=== PATIENT | male | born 1980 | race Caucasian/White ===

== ENCOUNTER 2024-10-18 07:20 | Outpatient (OUT) | payer OTHER, SELFPAY ==
--- NOTE | 2024-10-18 | ECG_ITS ---
[facility] Test Date: 2024-10-18 Pat Name: ZARINA FELTON Department: Room: - Gender: Male Change Of Address Clerk: : 1980 Requested By: DARIN VALENZUELA Order Number: [id number] Reading MD: DARIN VALENZUELA Measurements Intervals [place] Rate: 82 P: 56 W[place]: 128 QRS: 256 QRSD: 92 T: 9 QT: 338 QTc: 396 Interpretive Statements SINUS RHYTHM PATTERN CONSISTENT WITH PULMONARY DISEASE INCOMPLETE RIGHT BUNDLE BRANCH BLOCK [90+ ms QRS DURATION, TERMINAL R IN V1/V2, 40+ ms S IN I/aVL/V4/V5/V6] RIGHT VENTRICULAR HYPERTROPHY [SOME/ALL OF: PROMINENT R IN V1, LATE TRANSITION, RAD, MARLO, SSS] No previous ECG available for comparison Electronically Signed On 10-18-2024 19:45:47 EST by DARIN VALENZUELA
[2024-10-18 07:59] LABS: Basophils Percent Auto 0.4 % (0.2-2.0); Eosinophils Absolute Auto 0.2 10^3/uL (0.0-0.7); Eosinophils Percent Auto 2.6 % (0.9-7.0); Hematocrit 53.9 % (42.0-54.0); Hemoglobin 17.5 g/dL (14.0-18.0); Immature Granulocytes Abs Auto 0.02 10^3/uL (0.00-0.03); Immature Granulocytes Pct Auto 0.3 % (0.0-0.5); Lymphocytes Absolute Auto 1.8 10^3/uL (1.2-3.8); Lymphocytes Percent Auto 23.6 % (20.5-60.0); Mean Corpuscular HGB Conc 32.5 g/dL (29.9-35.2); Mean Corpuscular Hemoglobin 26.3 pg (25.9-34.0); Mean Corpuscular Volume 80.9 fL (80.0-94.0); Mean Platelet Volume 9.1 fL (9.5-13.5); Monocytes Absolute Auto 0.7 10^3/uL (0.3-0.8); Neutrophils Percent Auto 64.1 % (43.0-75.0); Platelet Count 259 10^3/uL (150-450); Red Blood Count 6.66 10^6/uL (4.70-6.10); Red Cell Distribution Width 14.1 % (11.0-15.0); White Blood Count 7.8 10^3/uL (4.0-11.0)
[2024-10-18 08:16] LABS: Alanine Aminotransferase 69 U/L (16-63); Alkaline Phosphatase 86 U/L (46-116); Anion Gap 13.3; Aspartate Amino Transferase 31 U/L (15-37); BUN Creatinine Ratio 11.1; Bilirubin Total 0.9 mg/dL (0.2-1.0); Calcium 9.3 mg/dL (8.5-10.1); Chloride 101 mmol/L (98-107); Cholesterol 204 mg/dL (<=200); Estimated GFR (African America >60 (>=60 mL/min/1.73m^2); Estimated GFR (Non-African Ame 54 (>=60 mL/min/1.73m^2); Glucose 93 mg/dL (74-106); HDL Cholesterol 45 mg/dL (40-60); Potassium 4.3 mmol/L (3.5-5.1); Sodium 139 mmol/L (136-145); Triglycerides 140 mg/dL (<=150)
[2024-10-18 08:17] LABS: Chol HDL Ratio 4.5; Thyroid Stimulating Hormone 3.009 uIU/mL (0.358-3.740)
[2024-10-18 08:29] LABS: Estimated Average Glucose 114 mg/dL; Glycohemoglobin A1C 5.6 % (4.5-6.2)
== END 2024-10-18 07:21 | disposition home or self-care (01) ==
PROVIDERS: PCP Internal Medicine; Visit Provider Internal Medicine
DX: Z00.00 Encounter for general adult medical examination without abnormal findings (principal); R00.0 Tachycardia, unspecified
CPT/HCPCS: 36415; 80053; 80061; 83036; 84443; 85025; 93005

== ENCOUNTER 2024-11-01 14:45 | Outpatient (OUT) | payer OTHER, SELFPAY ==
--- NOTE | 2024-11-01 14:47 | CA_ITS ---
Patient Name: ZARINA FELTON MR#: [id number] : 1980 Exam Date: 11/01/2024 Ordering Doctor: DR DARIN VALENZUELA D.O. ECHOCARDIOGRAM REPORT PROCEDURE: CA ECHO DOPPLER COMPLETE INDICATIONS: Hypertension, tachycardia, heart murmur COMPARISON: None. DESCRIPTION: COMPLETE ECHOCARDIOGRAM Real-time transthoracic echocardiography with 2D, M-mode, spectral and color flow Doppler performed. QUALITY: Technical quality was good. LEFT VENTRICLE: Normal chamber size. Moderate concentric hypertrophy. Global left ventricular systolic function is normal. LV EF: Estimated left ventricular ejection fraction is 65-70%. DIASTOLIC: Normal diastolic function. ATRIAL SEPTUM: LEFT ATRIUM: Normal chamber size. RIGHT ATRIUM: Normal chamber size. RIGHT VENTRICLE: Normal chamber size. Normal right ventricular systolic function. TRICUSPID VALVE: Normal mobility and thickness. No stenosis with trivial regurgitation. No evidence of pulmonary hypertension. RVSP 23 mmHg MITRAL VALVE: Normal mobility and thickness. No evidence of mitral valve stenosis. There is no mitral annular calcification. Trivial mitral regurgitation. AORTIC VALVE: Normal trileaflet appearance. No visible sclerosis. Normal leaflet mobility. No evidence of aortic valve stenosis. Trivial aortic regurgitation. AORTIC ROOT: Normal diameter and appearance, measuring 3.4 cm. The ascending aorta is normal in size measuring 2.9 cm. PULMONIC VALVE: Normal thickness and mobility. No stenosis. Trivial regurgitation. PERICARDIUM: No evidence of pericardial effusion. IVC: Collapses with inspirations. Normal size. PLEURA: CONCLUSION: 1. Moderate concentric left ventricular hypertrophy with normal systolic function. LVEF is 65 to 70%. 2. Normal right ventricular size and systolic function. 3. Normal diastolic function. 4. No significant valvular dysfunction. 5. Normal right-sided pressures. Adult Echocardiography Procedure Report Left Ventricle LVEDD (3.7 - 5.6 cm): 4.52 cm LVESD (2.2 - 4.0 cm): 2.65 cm LVIVS thickness (0.6 - 1.2 cm): 1.57 cm LVPW thickness (0.5 - 1.0 cm): 1.21 cm e': 0.15 m/s E - e': 4.63 LVOT Max Gradient: 4.24 mm[Hg] LVOT Area (cm2): 1.03 m/s Peak Velocity (LVOT): 1.03 m/s Mean Velocity (LVOT): 0.67 m/s LVOT Diameter 2.33 cm Left Ventricular Ejection Fraction: 65-70 % Left Atrium LA Volume Index (2D A2C): 24.05 ml/m2 Left Atrium Systolic Dimension: 3.93 cm Mitral Valve MV E to A Ratio: 0.80 Mitral Valve A-Wave Peak Velocity: 0.87 m/s Mitral Valve E-Wave Peak Velocity: 0.70 m/s Right Ventricle RV Internal Diastolic Dimension: 3.42 cm Aorta AO Root Diam: 3.39 cm Ascending Ao Diam: 2.93 cm Aortic Valve AoV Area (Peak Jarrod): 3.05 cm2, 2.98 cm2 AoV Area (VTI): 3.17 cm2, 3.17 cm2 Peak Velocity(Antegrade Flow): 1.47 m/s, 1.40 m/s Peak Gradient(Antegrade Flow): 8.69 mm[Hg], 7.85 mm[Hg] Mean Velocity(Antegrade Flow): 0.99 m/s, 0.98 m/s Mean Gradient(Antegrade Flow): 4.48 mm[Hg], 4.35 mm[Hg] Velocity Time Integral: 22.69 cm, 22.64 cm Tricuspid Valve Peak Velocity (Regurgitant Flow): 2.21 m/s, 2.14 m/s Pulmonic Valve Mean Gradient: 1.89 mm[Hg], 2.59 mm[Hg] Mean Velocity: 0.65 m/s, 0.75 m/s Peak Velocity: 1.04 m/s Peak Gradient: 3.52 mm[Hg], 5.26 mm[Hg] Right Atrium Right Atrium Systolic Pressure: 45.48 ml, 45.48 ml Dictated by: Landon Larios M.D. on 11/01/2024 at 18:46 Approved by: Landon Larios M.D. on 11/01/2024 at 18:50
--- OUTSIDE RECORDS SUMMARY | 2024-11-01 14:49 | XMS_ITS | CCD ---
Author Organization [facility] Care Team Providers Care Grating Machine Operator Name Role Phone Demetria Vogel Unavailable Neal Valenzuela Unavailable DR NEAL VALENZUELA Attending Unavailable BIANCA, DR WEBSTER Consulting Unavailable BIANCA, DR WEBSTER Primary Care Unavailable BIANCA, DR WEBSTER Admitting Unavailable REBECCA, DR THEODORE Momin Consulting Unavailable EMILY Kirk Attending Provider Claudette Kirk Unavailable Claudette Kirk Attending Unavailable Claudette Kirk Admitting Unavailable Allergies Allergy Classification Reported Allergen(s) Allergy Type Date of Onset Reaction(s) Facility (9 sources) Penicillin G Drug Allergy 4 Unknown, Unknown Reaction [facility] (3 sources) Penicillins Drug allergy (disorder) 4 Unknown Reaction [facility] (4 sources) Substance with penicillin structure and antibacterial mechanism of action (substance) Drug allergy Unknown [employer] Other Medications Current Medications Medication Drug Class(es) Dates Sig (Normalized) Sig (Original) esomeprazole 40 mg oral tablet (15 sources) Proton Pump Inhibitor Start: 01-10-2024 take 40 mg by mouth once daily Esomeprazole Magnesium Active 40 MG PO Daily January 10, 2024 12:00am Esomeprazole Mag nesium 40 mg TAKE 1 CAPSULE DAILY ON AN EMPTY STOMACH, FOLLOWED IN 30 MINUTES BY BREAKFAST Orally Once a day for 90 days Active NexIUM Not-Takin g Esomeprazole Magnesium 40 mg capsule,delayed release(DR/EC) (2 sources) Start: 07-08-2024 Esomeprazole M agnesium 40 mg capsule,delayed release(DR/EC) Active 0 .ROUTE .COMPLEX 90 July 08, 2024 5:56am TAKE 1 CAPSULE DAILY ON AN EMPTY STOMACH, FOLLOWED IN 30 MINUTES BY BREAKFAST Start: 01-10-2024 End: 07-08-2024 take 1 capsule by mouth once daily Esomeprazole Magnesium 40 mg capsule,delayed release(DR/EC) Discontinued 40 MG PO Daily January 09, 2024 11:00pm July 08, 2024 5:56am 0.5 ml testosterone enanthate 100 mg/ml auto-injector (1 source) Androgen Start: 10-12-2024 Testosterone E nanthate 50 mg/0.5 mL auto-injector Active 50 MG SUBCUT every week October 12, 2024 12:00am triamcinolone acetonide 0.005 mg/mg topical ointment (1 source) Corticosteroid Start: 08-06-2023 Triamcinolone Acetonide 0.5 % 1 application Externally Twice a day for 30 days Aug, Active Completed/Discontinued Medications Medication Drug Class(es) Dates Sig (Normalized) Sig (Original) cyclobenzaprine hydrochloride 10 mg oral tablet (9 sources) Muscle Relaxant Start: 01-10-2024 End: 10-12-2024 take 1 tablet by mouth once daily Cyclobenzaprine 10 mg tablet Discontinued 10 MG PO daily 7 January 09, 2024 11:00pm October 12, 2024 3:01pm Start: 11-04-2022 take 1 tablet by kaur th every twenty-four hours Cyclobenzaprine HCl 5 MG 1 tablet at bedtime as needed Orally Once a day for 30 day(s) Oct, Not-Taking Ketorolac (14 sources) Nonsteroidal Anti-inflammatory Drug, Cyclooxygenase Inhibitor Start: 05-11-2014 Toradol p er 15 mg May, 60 mg Start: 12-21-2013 Toradol per 15 mg Dec, 60 mg methylPREDNISolone (7 sources) Corticosteroid Start: 12-21-2013 Depo-Medrol 80 mg Dec, 80 mg sulfamethoxazole 800 mg / trimethoprim 160 mg oral tablet (7 sources) Dihydrofolate Reductase Inhibitor Antibacterial, Sulfonamide Antimicrobial Start: 11-04-2022 take 1 tablet by mouth every twelve hours Sulfamethoxazole -Trimethoprim 800-160 MG 1 tablet Orally Twice a day for 10 day(s) Oct, Not-Taking Problems Active Problems Problem Classification Problem Date Documented Da te Episodic/Chronic Alcohol-related disorders (7 sources) Nondependent alcohol abuse in remission; Translations: [Alcohol abuse, in remission] Chronic Cardiac dysrhythmias (2 sources) Tachycardia; Translations: [Tachycardia, unspecified] 10-12-2024 Episodic Esophageal disorders (9 sources) Gastro-esophageal reflux disease with esophagitis; Translations: [Gastroesophageal reflux disease with esophagitis without hemorrhage] 10-09-2024 Chronic Essential hypertension (14 sources) Essential hypertension; Translations: [Essential (primary) hypertension] Chronic Fracture of upper limb (1 source) Displaced fracture of distal phalanx of unspecified finger, initial encounter for closed fracture Episodic Lymphadenitis (7 sources) Anterior cervical lymphadenopathy; Translations: [Localized enlarged lymph nodes] Episodic Mood disorders (20 sources) Major depression in remission; Translations: [Major depressive disorder, single episode, in full remission] Chronic Nonmalignant breast conditions (5 sources) Unspecified lump in left breast, subareolar; Translations: [UNSPEC LUMP IN LT BREAST SUBAREOLAR] Onset: 12-17-2022 Episodic Other connective tissue disease (1 source) Pain in right finger(s) Episodic Other inflammatory condition of skin (6 sources) Seborrheic dermatitis of scalp; Translations: [Seborrheic dermatitis, unspecified] Episodic Other inflammatory condition of skin (2 sources) Seborrheic dermatitis, unspecified; Translations: [Seborrheic dermatitis of scalp] Episodic Other nutritional; endocrine; and metabolic disorders (4 sources) Obesity caused by energy imbalance; Translations: [Other obesity due to excess calories] Chronic Other nutritional; endocrine; and metabolic disorders (4 sources) Body mass index 30+ - obesity; Translations: [Body mass index (BMI) 32.0-32.9, adult] Chronic Other nutritional; endocrine; and metabolic disorders (1 source) Other obesity due to excess calories Chronic Other nutritional; endocrine; and metabolic disorders (1 source) Body mass index (BMI) 32.0-32.9, adult Chronic Other skin disorders (6 sources) Epidermoid cyst of skin; Translations: [Sebaceous cyst] Episodic Other skin disorders (1 source) Follicular disorder, unspecified Episodic Other skin disorders (1 source) Sebaceous cyst; Translations: [Sebaceous cyst of ear] Episodic Other upper respiratory infections (7 sources) Chronic frontal sinusitis; Translations: [Chronic frontal sinusitis] Chronic Other upper respiratory infections (7 sources) Acute maxillary sinusitis; Translations: [Acute maxillary sinusitis, unspecified] Episodic Residual codes; unclassified (7 sources) Family history of coronary arteriosclerosis; Translations: [Family history of ischemic heart disease and other diseases of the circulatory system] Episodic Spondylosis; intervertebral disc disorders; other back problems (1 source) Radiculopathy, cervical region Episodic Sprains and strains (7 sources) Neck sprain; Translations: [Strain of muscle, fascia and tendon at neck level, initial encounter] Episodic Substance-related disorders (7 sources) Tobacco user; Translations: [Nicotine dependence, cigarettes, in remission] Chronic Unclassified (1 source) Pain in right finger(s); Translations: [Pain in right finger(s)] Onset: 07-09-2023 Past or Other Problems Problem Classification Problem Date Documented Da te Episodic/Chronic Esophageal disorders (5 sources) Esophageal disorders; Translations: [Gastro-esophageal reflux disease with esophagitis, without bleeding] Results Test Name Value Interpretation Reference Range Facil ity XR finger RT 3rd digiton XR finger RT 3rd digit [facility] [place] [address] [place] [address] XRay Report Signed Patient: Zarina Michelle MR#: [id number] 26 : 1980 Acct:[id number] Age/Sex: 43 / M ADM Date: 07/09/23 Loc: XDUCLY Room: Type: [facility] Attending Dr: Claudette Kirk APRN Copies to: Claudette Kirk APRN Ordering Provider: Claudette Kirk APRN Date of Service: 07/09/23 XR/XR finger RT 3rd digit: RIGHT MIDDLE FINGER INJURY 3 views 3rd digit RIGHT hand plain film COMPARISON: None HISTORY: RIGHT middle finger injury. ACUTE FINDINGS: Hyperflexion at the 3rd distal interphalangeal joint. 1 mm avulsion fracture posterior to the distal interphalangeal joint. DEGENERATIVE CHANGE: Unremarkable SOFT TISSUE FINDINGS: Unremarkable JOINT EFFUSION: None POSTOP CHANGES: None BONY MINERALIZATION: Adequate XR/XR finger RT 3rd digit IMPRESSION: Hyperflexion at the 3rd distal interphalangeal joint with small posterior avulsion fracture. Impression dictated by: Win Ag M.D.07/09/2023 12:17 PM Dictation Location: [place] [address] Transcribed By: ROSS 07/09/23 1217 Dictated By: Win Ag DO 07/09/23 1216 Signed By: 07/09/23 1217 Normal [facility] XR finger RT 3rd digit [facility] [employer] Other XR finger RT 3rd digit [facility] [employer] Other XR finger RT 3rd digit [address] [facility] [employer] Other XR finger RT 3rd [place] [address] [employer] Other XR finger RT 3rd digit XRay Report [employer] Other XR finger RT 3rd digit Signed [employer] Other XR finger RT 3rd digit Patient: Zarina Michelle MR#: [id number] [employer] Other XR finger RT 3rd digit 26 [employer] Other XR finger RT 3rd digit : 1980 Acct:[id number] [employer] Other XR finger RT 3rd digit Age/Sex: 43 / M ADM Date: 07/09/23 [employer] Other XR finger RT 3rd digit Loc: XDUCLY Room: Type: [facility] [employer] Other XR finger RT 3rd digit Attending Dr: Claudette Kirk [facility] [employer] Other XR finger RT 3rd digit Copies to: Claudette Kirk [facility] [employer] Other XR finger RT 3rd digit Ordering Provider: Claudette Kirk BUSINESS INFORMATION ANALYST [employer] Other XR finger RT 3rd digit Date of Service: 07/09/23 [employer] Other XR finger RT 3rd digit XR/XR finger RT 3rd digit: RIGHT MIDDLE FINGER INJURY [employer] Other XR finger RT 3rd digit 3 views 3rd digit RIGHT hand plain film [employer] Other XR finger RT 3rd digit COMPARISON: None [employer] Other XR finger RT 3rd digit HISTORY: RIGHT middle finger injury. [employer] Other XR finger RT 3rd digit ACUTE FINDINGS: Hyperflexion at the 3rd distal interphalangeal joint. 1 mm avulsion fracture [employer] Other XR finger RT 3rd digit posterior to the distal interphalangeal joint. [employer] Other XR finger RT 3rd digit DEGENERATIVE CHANGE: Unremarkable [employer] Other XR finger RT 3rd digit SOFT TISSUE FINDINGS: Unremarkable [employer] Other XR finger RT 3rd digit JOINT EFFUSION: None [employer] Other XR finger RT 3rd digit POSTOP CHANGES: None [employer] Other XR finger RT 3rd digit BONY MINERALIZATION: Adequate [employer] Other XR finger RT 3rd digit XR/XR finger RT 3rd digit [employer] Other XR finger RT 3rd digit IMPRESSION: Hyperflexion at the 3rd distal interphalangeal joint with small posterior avulsion [employer] Other XR finger RT 3rd digit fracture. [employer] Other XR finger RT 3rd digit Impression dictated by: Win Ag M.D.07/09/2023 12:17 PM [employer] Other XR finger RT 3rd digit Dictation Location: [place] [address] [employer] Other XR finger RT 3rd digit Transcribed By: ROSS 07/09/23 [facility] [employer] Other XR finger RT 3rd digit Dictated By: Win Ag DO 07/09/23 [facility] [employer] Other XR finger RT 3rd digit Signed By: [employer] Other XR finger RT 3rd digit 07/09/23 4451 [employer] Other MG MAMM ERIK DIAG W CADon MG MAMM ERIK DIAG W CAD Patient: ZARINA MICHELLE. Exam Date: 12/17/2022 : 1980 Gender:M Ordering : DR NEAL VALENZUELA D.O. Admission #: [id number] Family : Order #: [id number] CLICK HERE TO VIEW EXAM RADIOLOGY REPORT PROCEDURE: MAMMOGRAM BILATERAL DIAGNOSTIC DIGITAL WITH COMPUTER AIDED DETECTION, 12/17/2022, 08:02 ULTRASOUND BREAST LEFT LIMITED, 12/17/2022, 09:01 COMPARISON: None. INDICATIONS: Lump of subareolar area of left breast Calculator Name NCI Breast Cancer Risk Assessment Tool 5 Year Breast Cancer Risk Not Applicable. Lifetime Breast Cancer Risk Not Applicable. Personal Breast Cancer No Personal Ovarian Cancer No Treatments None Family Cancers None LOCATION: [facility] BREAST COMPOSITION: Almost entirely fatty. FINDINGS: DIAGNOSTIC CATEGORY 2--BENIGN FINDING: RIGHT BREAST: No significant suspicious finding. LEFT BREAST: Small, subtle flame shaped area of increased density posterior to the nipple suggesting gynecomastia. Ultrasound evaluation demonstrates similar findings. No mass or cyst. Findings consistent with very mild unilateral gynecomastia. RECOMMENDATIONS: CLINICAL EVALUATION. PLEASE NOTE: A NORMAL MAMMOGRAM DOES NOT EXCLUDE THE POSSIBILITY OF BREAST CANCER. A CLINICALLY SUSPICIOUS PALPABLE LUMP SHOULD BE BIOPSIED. Dictated by: Theodore Bonilla M.D. on 12/17/2022 at 09:29 Approved by: Theodore Bonilla M.D. on 12/17/2022 at 09:31 Normal [facility] MG MAMM ERIK DIAG W CAD [employer] Other US BREAST LEFT LIMITEDon US BREAST LEFT LIMITED Patient: ZARINA MICHELLE. Exam Date: 12/17/2022 : 1980 Gender:M Ordering : DR NEAL VALENZUELA D.O. Admission #: [id number] Family : Order #: [id number] CLICK HERE TO VIEW EXAM RADIOLOGY REPORT PROCEDURE: MAMMOGRAM BILATERAL DIAGNOSTIC DIGITAL WITH COMPUTER AIDED DETECTION, 12/17/2022, 08:02 ULTRASOUND BREAST LEFT LIMITED, 12/17/2022, 09:01 COMPARISON: None. INDICATIONS: Lump of subareolar area of left breast Calculator Name NCI Breast Cancer Risk Assessment Tool 5 Year Breast Cancer Risk Not Applicable. Lifetime Breast Cancer Risk Not Applicable. Personal Breast Cancer No Personal Ovarian Cancer No Treatments None Family Cancers None LOCATION: [facility] BREAST COMPOSITION: Almost entirely fatty. FINDINGS: DIAGNOSTIC CATEGORY 2--BENIGN FINDING: RIGHT BREAST: No significant suspicious finding. LEFT BREAST: Small, subtle flame shaped area of increased density posterior to the nipple suggesting gynecomastia. Ultrasound evaluation demonstrates similar findings. No mass or cyst. Findings consistent with very mild unilateral gynecomastia. RECOMMENDATIONS: CLINICAL EVALUATION. PLEASE NOTE: A NORMAL MAMMOGRAM DOES NOT EXCLUDE THE POSSIBILITY OF BREAST CANCER. A CLINICALLY SUSPICIOUS PALPABLE LUMP SHOULD BE BIOPSIED. Dictated by: Theodore Bonilla M.D. on 12/17/2022 at 09:29 Approved by: Theodore Bonilla M.D. on 12/17/2022 at 09:31 Normal [facility] RPRon 10-25-2019 Reagin Ab RPR Ql (S) Nonreactive Normal Nonreactive [facility] Comment on above: Performed By: #### C BCDIF, UA, PT, GBCHEM, GBTSH, MG, RPR #### [facility] [address] [place], [place] [id number] CBCDIFon 10-22-2019 Abs Baso 0.01 k/uL Normal 0-0.[address] [facility] Comment on above: Performed By: #### C BCDIF, UA, PT, GBCHEM, GBTSH, MG, RPR #### [facility] [address] [place] [address] Abs Garvin 0.94 k/uL High 0-0.[address] [facility] Comment on above: Performed By: #### C BCDIF, UA, PT, GBCHEM, GBTSH, MG, RPR #### [facility] [address] [place] [address] Abs Neut 4.55 k/uL Normal 1.8-7.[address] [facility] Comment on above: Performed By: #### C BCDIF, UA, PT, GBCHEM, GBTSH, MG, RPR #### [facility] [address] [place] [address] Basophils/100 WBC (Bld) 0.1 % Normal 0-1 [facility] Comment on above: Performed By: #### C BCDIF, UA, PT, GBCHEM, GBTSH, MG, RPR #### [facility] [address] [place] [address] Eosinophils (Bld) [#/Vol] 0.29 10*3/uL Normal 0-0.4 [facility] Comment on above: Performed By: #### C BCDIF, UA, PT, GBCHEM, GBTSH, MG, RPR #### [facility] [address] [place] [address] Eosinophils/100 WBC (Bld) 3.8 % Normal 0-4 [facility] Comment on above: Performed By: #### C BCDIF, UA, PT, GBCHEM, GBTSH, MG, RPR #### [facility] [address] [place] [address] Erythrocyte distribution width (RBC) [Ratio] 13.7 % Normal 11.5-14.5 [facility] Comment on above: Performed By: #### C BCDIF, UA, PT, GBCHEM, GBTSH, MG, RPR #### [facility] [address] [place] [address] Hematocrit (Bld) [Volume fraction] 49.8 % Normal 41.0-53.[address] [facility] Comment on above: Performed By: #### C BCDIF, UA, PT, GBCHEM, GBTSH, MG, RPR #### [facility] [address] [place] [address] Hemoglobin (Bld) [Mass/Vol] 16.1 g/dL Normal 13.5-17.5 [facility] Comment on above: Performed By: #### C BCDIF, UA, PT, GBCHEM, GBTSH, MG, RPR #### [facility] [address] [place] [address] Immature Gran 0.40 % Normal 0-1.9 [facility] Comment on above: Performed By: #### C BCDIF, UA, PT, GBCHEM, GBTSH, MG, RPR #### [facility] [address] [place] [address] Lymphocytes (Bld) [#/Vol] 1.87 10*3/uL Normal 1.0-4.0 [facility] Comment on above: Performed By: #### C BCDIF, UA, PT, GBCHEM, GBTSH, MG, RPR #### [facility] [address] [place] [address] Lymphocytes/100 WBC (Bld) 24.3 % Normal 22-44 [facility] Comment on above: Performed By: #### C BCDIF, UA, PT, GBCHEM, GBTSH, MG, RPR #### [facility] [address] [place] [address] MCH (RBC) [Entitic mass] 26.3 pG Normal 26-34 [facility] Comment on above: Performed By: #### C BCDIF, UA, PT, GBCHEM, GBTSH, MG, RPR #### [facility] [address] [place] [address] MCHC (RBC) [Mass/Vol] 32.3 g/dL Normal 31-37 [facility] Comment on above: Performed By: #### C BCDIF, UA, PT, GBCHEM, GBTSH, MG, RPR #### [facility] [address] [place] [address] MCV (RBC) [Entitic vol] 81.2 fL Normal 80-100 [facility] Comment on above: Performed By: #### C BCDIF, UA, PT, GBCHEM, GBTSH, MG, RPR #### [facility] [address] [place] [address] Monocytes/100 WBC (Bld) 12.2 % High 4-12 [facility] Comment on above: Performed By: #### C BCDIF, UA, PT, GBCHEM, GBTSH, MG, RPR #### [facility] [address] [place] [address] Neutrophils/100 WBC (Bld) 59.2 % Normal 40-70 [facility] Comment on above: Performed By: #### C BCDIF, UA, PT, GBCHEM, GBTSH, MG, RPR #### [facility] [address] [place] [address] NRBCs 0 /100 WBC Normal 0-0.[address] [facility] Comment on above: Performed By: #### C BCDIF, UA, PT, GBCHEM, GBTSH, MG, RPR #### [facility] [address] [place] [address] Platelets (Bld) [#/Vol] 273 10*3/uL Normal 150-450 [facility] Comment on above: Performed By: #### C BCDIF, UA, PT, GBCHEM, GBTSH, MG, RPR #### [facility] [address] [place] [address] RBC (Bld) [#/Vol] 6.13 10*6/uL High 4.50-5.90 [facility] Comment on above: Performed By: #### C BCDIF, UA, PT, GBCHEM, GBTSH, MG, RPR #### [facility] [address] [place] [address] WBC (Bld) [#/Vol] 7.69 10*3/uL Normal 4.5-11.0 [facility] Comment on above: Performed By: #### C BCDIF, UA, PT, GBCHEM, GBTSH, MG, RPR #### [facility] [address] [place] [address] [facility] 2019 Albumin [Mass/Vol] 4.7 g/dL Normal 3.5-5.0 [facility] Comment on above: Performed By: #### C BCDIF, UA, PT, GBCHEM, GBTSH, MG, RPR #### [facility] [address] [place] [address] Alkaline Phos 119 U/L Normal 38-125 [facility] Comment on above: Performed By: #### C BCDIF, UA, PT, GBCHEM, GBTSH, MG, RPR #### [facility] [address] [place] [address] ALT [Catalytic activity/Vol] 129 U/L High 0-49 [facility] Comment on above: Performed By: #### C BCDIF, UA, PT, GBCHEM, GBTSH, MG, RPR #### [facility] [address] [facility] [place] [address] Amylase [Catalytic activity/Vol] 82 U/L Normal 30-110 [facility] Comment on above: Performed By: #### C BCDIF, UA, PT, GBCHEM, GBTSH, MG, RPR #### [facility] [address] [place] [address] Anion gap [Moles/Vol] 15 mmol/L Normal 0-15 [facility] Comment on above: Performed By: #### C BCDIF, UA, PT, GBCHEM, GBTSH, MG, RPR #### [facility] [address] [place] [address] AST [Catalytic activity/Vol] 65 U/L High 17-59 [facility] Comment on above: Performed By: #### C BCDIF, UA, PT, GBCHEM, GBTSH, MG, RPR #### [facility] [address] [place] [address] Bilirubin Ql (U) 0.6 mg/dL Normal 0.2-1.3 [facility] Comment on above: Performed By: #### C BCDIF, UA, PT, GBCHEM, GBTSH, MG, RPR #### [facility] [address] [place] [address] Calcium [Mass/Vol] 9.7 mg/dL Normal 8.4-10.2 [facility] Comment on above: Performed By: #### C BCDIF, UA, PT, GBCHEM, GBTSH, MG, RPR #### [facility] [address] [place] [address] Chloride [Moles/Vol] 99 mmol/L Normal 98-107 [facility] Comment on above: Performed By: #### C BCDIF, UA, PT, GBCHEM, GBTSH, MG, RPR #### [facility] [address] [place] [address] Cholesterol [Mass/Vol] 229 mg/dL High 100-199 [facility] Comment on above: Performed By: #### C BCDIF, UA, PT, GBCHEM, GBTSH, MG, RPR #### [facility] [address] [place] [address] CO2 [Moles/Vol] 31 mmol/L High 22-30 [facility] Comment on above: Performed By: #### C BCDIF, UA, PT, GBCHEM, GBTSH, MG, RPR #### [facility] [address] [place] [address] Creatinine [Mass/Vol] 1.35 mg/dL High 0.66-1.25 [facility] Comment on above: Performed By: #### C BCDIF, UA, PT, GBCHEM, GBTSH, MG, RPR #### [facility] [address] [place] [address] eGFR Amer >60 Normal >60 [facility] Comment on above: Result Comment: MDRD calculation used for eGFR results. Performed By: #### C BCDIF, UA, PT, GBCHEM, GBTSH, MG, RPR #### [facility] [address] [place] [address] eGFR non Am >60 Normal >60 [facility] Comment on above: Performed By: #### C BCDIF, UA, PT, GBCHEM, GBTSH, MG, RPR #### [facility] [address] [place] [address] Gamma glutamyl transferase [Catalytic activity/Vol] 352 U/L High 15-73 [facility] Comment on above: Performed By: #### C BCDIF, UA, PT, GBCHEM, GBTSH, MG, RPR #### [facility] [address] [place] [address] Glucose [Mass/Vol] 91 mg/dL Normal 74-106 [facility] Comment on above: Performed By: #### C BCDIF, UA, PT, GBCHEM, GBTSH, MG, RPR #### [facility] [address] [place] [address] LDH 472 U/L Normal 318-[address] [facility] Comment on above: Performed By: #### C BCDIF, UA, PT, GBCHEM, GBTSH, MG, RPR #### [facility] [address] [place] [address] Phosphate [Mass/Vol] 3.8 mg/dL Normal 2.5-4.5 [facility] Comment on above: Performed By: #### C BCDIF, UA, PT, GBCHEM, GBTSH, MG, RPR #### [facility] [address] [facility] [place] [address] Potassium [Moles/Vol] 4.8 mmol/L Normal 3.5-5.1 [facility] Comment on above: Performed By: #### C BCDIF, UA, PT, GBCHEM, GBTSH, MG, RPR #### [facility] [address] [place] [address] Protein [Mass/Vol] 8.1 g/dL Normal 6.2-8.2 [facility] Comment on above: Performed By: #### C BCDIF, UA, PT, GBCHEM, GBTSH, MG, RPR #### [facility] Clinical Lab [address] [place] [address] Sodium [Moles/Vol] 140 mmol/L Normal 137-145 [facility] Comment on above: Performed By: #### C BCDIF, UA, PT, GBCHEM, GBTSH, MG, RPR #### [facility] [address] [place] [address] Triglyceride [Mass/Vol] 228 mg/dL High 35-150 [facility] Comment on above: Performed By: #### C BCDIF, UA, PT, GBCHEM, GBTSH, MG, RPR #### [facility] Clinical Lab [address] [place] [address] Urate [Mass/Vol] 6.8 mg/dL Normal 3.5-8.5 [facility] Comment on above: Performed By: #### C BCDIF, UA, PT, GBCHEM, GBTSH, MG, RPR #### [facility] Clinical Lab [address] [place] [address] Urea nitrogen [Mass/Vol] 20 mg/dL Normal 9-20 [facility] Comment on above: Performed By: #### C BCDIF, UA, PT, GBCHEM, GBTSH, MG, RPR #### [facility] Clinical Lab [address] [place] [address] [facility] TSHon 10-22-2019 TSH Qn m[IU]/L Low 0.465-4.680 [facility] Comment on above: Result Comment: Biot in (Vitamin B7) is known to potentially cause an interfering NEGATIVE bias with this assay. If this result does not correlate clinically with your patient's presentation, it is suggested that Biotin use be discontinued for 2 days prior to re-testing. Performed By: #### C BCDIF, UA, PT, GBCHEM, GBTSH, MG, RPR #### [facility] [address] [place] [address] Magnesiumon 10-22-2019 Magnesium [Mass/Vol] 2.2 mg/dL Normal 1.3-2.3 [facility] Comment on above: Performed By: #### C BCDIF, UA, PT, GBCHEM, GBTSH, MG, RPR #### [facility] Clinical Lab [address] [place] [address] Protimeon 10-22-2019 PT Coag (PPP) [Time] 1.1 s Normal 0.6-1.1 [facility] Comment on above: Result Comment: The PT/INR can be used to monitor the therapeutic effect of oral anticoagulants, such as warfarin. The recommended therapeutic range is an INR of 2.0 to 3.0 for most applications, including treatment and prevention of venous thrombosis, treatment of pulmonary embolism, prevention of strokes/TIA in patients with atrial fibrillation, prevention and treatment of thrombosis in patients with a lupus anticoagulant and prevention of systemic embolization in patients with heart valve disorders. There are certain conditions where clinicians may decide to use a lower or higher therapeutic range eg. 1.5 to 1.9 for secondary prevention of idiopathic venous thromboembolism and an INR 2.5 to 3.5 for older generation mechanical heart valves. Ofelia, et al. Chest 2004: 126:204S to 233S. Performed By: #### C BCDIF, UA, PT, GBCHEM, GBTSH, MG, RPR #### [facility] Clinical Lab [address] [facility] [place], [place] [id number] PT Coag (PPP) [Time] 13.5 s Normal 11.8-14.1 [facility] Comment on above: Performed By: #### C BCDIF, UA, PT, GBCHEM, GBTSH, MG, RPR #### [facility] Clinical Lab [address] [place], [place] [id number] T3 Totalon 10-22-2019 T3 Total 2.3 ng/mL High 0.970-1.[address] [facility] Comment on above: Performed By: #### T 3TOT, T3U, T4 #### [facility] Lab [address] [facility] [place], [place] [address] T3 Uptakeon 10-22-2019 T3 Uptake 35.3 % Normal 23.5-40.[address] [facility] Comment on above: Performed By: #### T 3TOT, T3U, T4 #### [facility] Clinical Lab [address] [facility] [place], [place] [id number] T4on 10-22-2019 T4 [Mass/Vol] 10.5 ug/dL Normal 5.5-11.0 [facility] Comment on above: Performed By: #### T 3TOT, T3U, T4 #### [facility] Clinical Lab [address] [facility] [place], [place] [id number] Urinalysison 10-22-2019 Bilirubin [Mass/Vol] Negative Normal Negative [facility] Comment on above: Performed By: #### C BCDIF, UA, PT, GBCHEM, GBTSH, MG, RPR #### [facility] Clinical Lab [address] [facility] [place], [place] [id number] Clarity (U) Clear Normal Clear [facility] Comment on above: Performed By: #### C BCDIF, UA, PT, GBCHEM, GBTSH, MG, RPR #### [facility] Clinical Lab [address] [place] [address] Color (U) Yellow Normal Yellow [facility] Comment on above: Performed By: #### C BCDIF, UA, PT, GBCHEM, GBTSH, MG, RPR #### [facility] Clinical Lab [address] [place] [address] Comments MICROSCOPIC ANALYSIS NOT DONE ON URINES WITH NEGATIVE BIOCHEMICAL TESTS Normal [facility] Comment on above: Performed By: #### C BCDIF, UA, PT, GBCHEM, GBTSH, MG, RPR #### [facility] Clinical Lab [address] [place] [address] Glucose [Mass/Vol] Negative Normal Negative [facility] Comment on above: Performed By: #### C BCDIF, UA, PT, GBCHEM, GBTSH, MG, RPR #### [facility] Clinical Lab [address] [place] [address] Hemoglobin/Blood Negative Normal Negative [facility] Comment on above: Performed By: #### C BCDIF, UA, PT, GBCHEM, GBTSH, MG, RPR #### [facility] Clinical Lab [address] [place] [address] Ketone Negative Normal Negative [facility] Comment on above: Performed By: #### C BCDIF, UA, PT, GBCHEM, GBTSH, MG, RPR #### [facility] Clinical Lab [address] [place] [address] Leukest Negative Normal Negative [facility] Comment on above: Performed By: #### C BCDIF, UA, PT, GBCHEM, GBTSH, MG, RPR #### [facility] Clinical Lab [address] [place] [address] Nitrite Ql (U) Negative Normal Negative [facility] Comment on above: Performed By: #### C BCDIF, UA, PT, GBCHEM, GBTSH, MG, RPR #### [facility] Clinical Lab [address] [facility] [place], [place] [id number] pH (U) 6.0 [pH] Normal 5-[address] [facility] Comment on above: Performed By: #### C BCDIF, UA, PT, GBCHEM, GBTSH, MG, RPR #### [facility] Clinical Lab [address] [place], [place] [id number] Protein (U) [Mass/Vol] Negative Normal Negative [facility] Comment on above: Performed By: #### C BCDIF, UA, PT, GBCHEM, GBTSH, MG, RPR #### [facility] Clinical Lab [address] [place] [address] Urine Spec [place] 1.017 Normal 1.005-1.030 [facility] Comment on above: Performed By: #### C BCDIF, UA, PT, GBCHEM, GBTSH, MG, RPR #### [facility] [address] [facility] [place], [place] [id number] Urobilinogen Qn (U) <2.0 Normal 0.0-1.0 [facility] Comment on above: Performed By: #### C BCDIF, UA, PT, GBCHEM, GBTSH, MG, RPR #### [facility] Clinical Lab [address] [facility] [place] [address] Vital Signs Date Time Vital Sign Value Performing Clinician Facility 10-12-2024 15:-0500 Body height 180.34 cm [facility] 10-12-2024 15:-0500 Body mass index (BMI) [Ratio] 32.1 kg/m2 [facility] 10-12-2024 15:0500 Body weight 104.55 kg [facility] 10-12-2024 15:01-0500 Diastolic blood pressure 109 mm[Hg] [facility] 10-12-2024 15:01-0500 Heart rate 118 /min [facility] 10-12-2024 15:0500 Respiratory rate 12 /min [facility] 10-12-2024 15:01-0500 Systolic blood pressure 164 mm[Hg] [facility] 01-10-2024 13:52-0400 Body height 180.34 cm [facility] 01-10-2024 13:52-0400 Body mass index (BMI) [Ratio] 32.2 kg/m2 [facility] 01-10-2024 13:52-0400 Body temperature 98.2 [degF] [facility] 01-10-2024 13:52-0400 Body weight 104.77 kg [facility] 01-10-2024 13:52-0400 Heart rate 82 /min [facility] 01-10-2024 13:52-0400 Respiratory rate 18 /min [facility] 01-10-2024 13:52-0400 SaO2% (BldA) [Mass fraction] 97 % [facility] 07-09-2023 11:00-0400 Body height 180.34 cm Claudette Kirk Other [employer] Other 07-09-2023 11:00-0400 Body mass index (BMI) [Ratio] 31.74 kg/m2 Claudette Kirk Other [employer] Other 07-09-2023 11:00-0400 Body temperature 98 [degF] Claudette Kirk Other [employer] Other 07-09-2023 11:00-0400 Body weight 103.24 kg Claudette Kirk Other [employer] Other 07-09-2023 11:00-0400 Diastolic blood pressure 94 mm[Hg] Claudette Kirk Other [employer] Other 07-09-2023 11:00-0400 Respiratory rate 18 /min Claudette Kirk Other [employer] Other 07-09-2023 11:00-0400 SaO2% (BldA) [Mass fraction] 95 % Claudette Kirk Other [employer] Other 07-09-2023 11:00-0400 Systolic blood pressure 150 mm[Hg] Claudette Kirk Other [employer] Other 06-11-2023 10:45-0400 Body height 180.34 cm Neal Ball Other [employer] Other 06-11-2023 10:45-0400 Body mass index (BMI) [Ratio] 32.63 kg/m2 Neal Ball Other [employer] Other 06-11-2023 10:45-0400 Body weight 106.14 kg Neal Ball Other [employer] Other 06-11-2023 10:45-0400 Diastolic blood pressure 83 mm[Hg] Neal Ball Other [employer] Other 06-11-2023 10:45-0400 Respiratory rate 12 /min Neal Ball Other [employer] Other 06-11-2023 10:45-0400 Systolic blood pressure 147 mm[Hg] Neal Ball Other [employer] Other 12-09-2022 10:30-0500 Body height 180.34 cm Neal Ball Other [employer] Other 12-09-2022 10:30-0500 Body mass index (BMI) [Ratio] 33.53 kg/m2 Nael Ball Other [employer] Other 12-09-2022 10:30-0500 Body weight 109.05 kg Neal Ball Other [employer] Other 12-09-2022 10:30-0500 Diastolic blood pressure 82 mm[Hg] Neal Ball Other [employer] Other 12-09-2022 10:30-0500 Respiratory rate 12 /min Neal Ball Other [employer] Other 12-09-2022 10:30-0500 Systolic blood pressure 130 mm[Hg] Neal Ball Other [employer] Other 11-04-2022 10:30-0500 Body height 180.34 cm Demetria Vogel Other [employer] Other 11-04-2022 10:30-0500 Body mass index (BMI) [Ratio] 32.63 kg/m2 Demetria Vogel Other [employer] Other 11-04-2022 10:30-0500 Body weight 106.14 kg Demetria Vogel Other [employer] Other 11-04-2022 10:30-0500 Diastolic blood pressure 88 mm[Hg] Demetria Vogel Other [employer] Other 11-04-2022 10:30-0500 SaO2% (BldA) [Mass fraction] 97 % Demetria Vogel Other [employer] Other 11-04-2022 10:30-0500 Systolic blood pressure 128 mm[Hg] Demetria Vogel Other [employer] Other Encounters Encounter Date Encounter Type Care Provider Facility Start: 10-12-2024 End: 10-12-2024 [facility] Work Phone: Start: 10-12-2024 End: 10-12-2024 Encounter for general adult medical examination without abnormal findings [facility] Start: 10-12-2024 End: 10-12-2024 Patient encounter procedure [facility] Work Phone: Start: 10-09-2024 Patient encounter status [facility] Start: 01-10-2024 End: 01-10-2024 ambulatory [facility] Work Phone: Start: 01-10-2024 End: 01-10-2024 Patient encounter procedure [facility] Work Phone: Start: 08-06-2023 End: 08-06-2023 ambulatory Neal Valenzuela Other [employer] Other Start: 08-06-2023 Telephone encounter Neal Valenzuela [facility] Start: 07-16-2023 End: 07-16-2023 ambulatory Neal Valenzuela Other [employer] Other Start: 07-16-2023 Telephone encounter Neal Valenzuela [facility] Start: 07-09-2023 Office outpatient vi sit 15 minutes Claudette Kirk [facility] Start: 07-09-2023 End: 07-09-2023 ambulatory Claudette Kirk Facility:[facility] Start: 07-09-2023 End: 07-09-2023 ambulatory Claudette Kirk Other [employer] Other Start: 07-09-2023 End: 07-09-2023 Patient encounter procedure BUSINESS INFORMATION ANALYST Claudette Kirk Work Phone: [facility] Work Phone: Start: 06-11-2023 End: 06-11-2023 ambulatory Neal Valenzuela Other [employer] Other Start: 06-11-2023 Encounter for genera l adult medical examination without abnormal findings Neal Valenzuela [facility] Start: 06-11-2023 Periodic preventive med est patient 40-64yrs Neal Valenzuela [facility] Start: 12-18-2022 End: 12-18-2022 ambulatory Neal Valenzuela Other [employer] Other Start: 12-18-2022 Telephone encounter Neal Valenzuela [facility] Start: 12-17-2022 End: 12-18-[address] NEAL VALENZUELA Facility:[facility] Start: 12-09-2022 End: 12-09-2022 ambulatory Neal Valenzuela Other [employer] Other Start: 12-09-2022 Office outpatient vi sit 15 minutes Neal Valenzuela [facility] Start: 11-04-2022 End: 11-04-2022 ambulatory Demetria Vogel Other [employer] Other Start: 11-04-2022 Office outpatient vi sit 15 minutes Demetria Vogel [facility] Procedures Date Procedure Procedure Detail Performing Clinician Start: 07-09-2023 X-ray of middle finger BUSINESS INFORMATION ANALYST Claudette Yelena Work Phone: Plan of Treatment Date Care Activity Detail Author Comprehensive metabo lic 1999 panel - Serum or Plasma [facility] enter EKG 12 channel panel [facility] Payers Date Payer Category Payer Self-pay 1980 Unknown [id number] 1958 Private Health Insurance [id number] Private Health Insurance [id number] Unknown [id number] Social History Date Type Detail Facility Unknown if ever smoked [employer] Other Sex Assigned At Sex Assigned At Bir th [employer] Other Start: 1980 Sex Assigned At Male F [facility] Start: 05-11-2014 End: 05-11-2014 Tobacco smoking status NHIS Smoker (finding) [facility] Start: 10-12-2024 Sex Male (finding) [facility] Evaluation note 08-06-2023 Note Date & Type Note Facility 08-06-2023 Evaluation note Encounter Date Diagnosis Assessment Notes Aug, Seborrheic dermatitis of scalp (ICD-10 - L21.9) [employer] Other Evaluation note 07-09-2023 Note Date & Type Note Facility 07-09-2023 Evaluation note Encounter Date Diagnosis Assessment Notes Jul, Pain of right middle finger (ICD-10 - M79.644) Jul, Closed avulsion fracture of distal phalanx of finger, initial encounter (ICD-10 - S62.639A) Discussed with patient x-ray is positive for avulsion fracture at distal right middle finger. Patient is placed in mallet splint. Given info to call and follow-up with Ortho. Ice and elevation encouraged. As needed Tylenol or ibuprofen as needed. Keep finger splinted until cleared by Ortho. Patient verbalized understanding. [employer] Other Evaluation note 06-11-2023 Note Date & Type Note Facility 06-11-2023 Evaluation note Encounter Date Diagnosis Assessment Notes Jun, Wellness examination (ICD-10 - Z00.00) Healthy diet and exercise. Reviewed age-appropria te preventive testing recommended. Jun, Gastroesophageal reflux disease with esophagitis without hemorrhage (ICD-10 - K21.00) Diet instructions: Smaller portions, avoid eating and laying flat, avoid eating or drinking prior to bedtime. Weight loss. Continue PPI - recurrent symptoms if stops Jun, Primary hypertension (ICD-10 - I10) This patient is instructed to consume a healthy, low-fat, low-salt diet. They are also encouraged to continue exercise to achieve/maint ain a normal BMI. Patient is instructed on home BP measurements: - rest for 5 minutes w/o talking- positioned w/ feet on floor and arm supported- average best 2/3 readings w/ goal < 135/85 Jun, Mild episode of recurrent major depressive disorder (ICD-10 - F33.0) Stable in remision Healthy diet and exercise. Jun, Other obesity due to excess calories (ICD-10 - E66.09) This patient has been instructed on a low-fat, high-fiber diet. They are instructed to reduce calories, portion sizes and snacks. It is recommended that they exercise for 30 minutes, 3-5 times weekly. Muscular body build Jun, Body mass index [BMI] 32.0-32.9, adult (ICD-10 - Z68.32) Goal BMI < 30, which may be difficult due to muscle mass [employer] Other Evaluation note 12-09-2022 Note Date & Type Note Facility 12-09-2022 Evaluation note Encounter Date Diagnosis Assessment Notes Dec, Subareolar mass of left breast (ICD-10 - N63.42) Discussed possible etiology. Must evaulate w/ mammogram, may require US and surgical referral [employer] Other Evaluation note 11-04-2022 Note Date & Type Note Facility 11-04-2022 Evaluation note Encounter Date Diagnosis Assessment Notes Oct, Left cervical radiculopathy (ICD-10 - M54.12) We started muscle relaxer. Suggest that he wear a wrist brace to bed for a few weeks possible carpal tunnel. Denies shoulder pain. Will assess with shoulder x-ray for possible impingement syndrome Oct, Folliculitis (ICD-10 - L73.9) Antibiotic given to patient [employer] Other Evaluation note Note Date & Type Note Facility Evaluation note No Information [employer] Other Evaluation note Note Date & Type Note Facility Evaluation note No assessment information availa [facility] Work Phone: Evaluation note Note Date & Type Note Facility Evaluation note Diagnosis Onset Date Resolution GERD (gastroesophageal reflux disease) acute October 12 2:54pm Hypertension acute October 12, 2024 2:54pm Major depression acute October 12, 2024 2:54pm Tachycardia acute October 12, 2024 2:54pm Wellness examination acute 2024 2:54pm [facility] Work Phone: History general Narrative - Reported Note Date & Type Note Facility History general Narrative - Reported Type Medical History Acute non-recurrent maxillary si nusitis Medical History Essential (primary) hypertension Medical History Seborrheic dermatitis of scalp Medical History Major depression in remission Medical History Gastro-esophageal re flux disease with esophagitis, without bleeding Medical History Chronic frontal sinusitis Medical History Anterior cervical lymphadenopath y Medical History Family history of early CAD Medical History Sebaceous cyst of ear Medical History Nicotine dependence, cigarettes, in remission Medical History Alcohol abuse, in remission Medical History Acute strain of neck muscle, initial encounter Medical History Depression, major, recurrent, mi ld Surgical History appendectomy Surgical History tumor Surgical History tonsillectomy Surgical History knee arthroscopy Hospitalization History see above [employer] Other Summary Purpose Family History No Family History Records FoundNo Family History Records FoundNo Family History Records Found Advance Directives Advance Directive Response Recorded Date/ Time Advance Directives No July 13, 2023 2:39pm Advance Directive Response Recorded Date/ Time Advance Directives No July 13, 2023 1:39pm Chief Complaint and Reason for Visit Chief Complaint Low back pain, radia ting down buttock/leg Chief Complaint Admit Date Wellness October 12, 2024 2: 54pm Reason for Visit Admit Date GERD (gastroesophageal reflux disease) J anuary 2024 2:54pm Hypertension October 12, 2024 2: 54pm Major depression October 12, 2024 2: 54pm Tachycardia October 12, 2024 2: 54pm Wellness examination October 12, 2024 2 :54pm Additional Source Comments (unrecognized sect ion and content) No Status Records FoundNo Status Records FoundNo Status Records Found INFORMATION SOURCE (unrecogn ized section and content) DATE CREATED AUTHOR [facility] DATE CREATED AUTHOR AUTHOR'S ORGANIZ ATION 12/24/[address] [facility] DATE CREATED AUTHOR AUTHOR'S ORGANIZ ATION 07/14/2023 [facility] REASON FOR VISIT (unrecogniz ed section and content) Bumps/ Scabs on headlump on chestTest Resultsblood pressure medication discussionBROKEN? MIDDLE FINER ON RIGHT HANDrefillNo Information Care Teams (unrecognized sec tion and content) Team Status: Inactive Member Role Status Dates Claudette Kirk APRN Attending Provider Active Team Status: Active Member Role Status Dates Neal Valenzuela DO Primary Care Provider Active Team Status: Inactive Member Role Status Dates Neal Valenzuela DO Primary Care Provider Active Start: January 10, 2024 End: January 10, 2024 Kristie Joyce APRN Attending Provider Active Start: January 10, 2024 End: January 10, 2024 Team Status: Inactive Member Role Status Dates Neal Valenzuela DO Primary Care Provide r, Attending Provider Active Start: October 12, 2024 End: October 12, 2024 Goals (unrecognized section and content) Goals may be documented in a n alternate section FOR RECORDS PERTAINING TO PATIENTS WHO ARE OR HAVE BEEN ENROLLED IN A CHEMICAL DEPENDENCY/SUBSTANCEABUSE PROGRAM, SOME INFORMATION MAY BE OMITTED. This clinical summary was aggregated from multiple sources. Caution should be exercised in using it in the provision of clinical care. This summary normalizes information from multiple sources, and as a consequence, information in this document may materially change the coding, format and clinical context of patient data. In addition, data may be omitted in some cases. CLINICAL DECISIONS SHOULD BE BASED ON THE PRIMARY CLINICAL RECORDS. [employer] provides no warranty or guarantee of the accuracy or completeness of information in this document.
== END 2024-11-01 14:46 | disposition home or self-care (01) ==
LOC: CARD 14:45
PROVIDERS: PCP Internal Medicine; Visit Provider Internal Medicine
DX: R00.0 Tachycardia, unspecified (principal); I10 Essential (primary) hypertension; R01.1 Cardiac murmur, unspecified
CPT/HCPCS: 93306